=== PATIENT | male | born 1985 | race Hispanic/Latino ===

== ENCOUNTER 2017-01-03 11:12 | Emergency (ER) | payer OTHER ==
[~2017-01-03] VITALS: Ht 167.6 cm; Wt 63.6 kg
[2017-01-03 11:13] VITALS: BP 104/63; PULSE 62; RESP 18; O2SAT 99
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
--- NOTE | 2017-01-03 13:44 | DRSVH ---
PROCEDURE: X-RAY RIGHT WRIST COMPLETE, MINIMUM THREE VIEWS ([id number]) INDICATIONS: fall on outstretched hand 10 days ago, continued pain. TECHNIQUE: 4 views of the wrist were acquired. COMPARISON: None. FINDINGS: Bones: No fractures or dislocations. No suspicious bony lesions. Scaphoid view: Scaphoid is intact. Soft tissues: No suspicious soft tissue calcifications. IMPRESSION: No fracture. No osseous lesion. If symptoms and/or clinical suspicion for pathology pers ists, further assessment with repeat radiographs or advanced imaging (e.g. CT, MRI or bone scan) may be helpful for further assessment. Dictated by: Keily Mcintyre MD, PhD on 01/03/2017 at 13:41 Approved by: Keily Mcintyre MD, PhD on 01/03/2017 at 13:42
[2017-01-03 14:49] VITALS: BP 119/68; PULSE 72; RESP 17; O2SAT 98
== END 2017-01-03 14:49 | disposition home or self-care (01) ==
LOC: SED 11:12
DX: G56.01 Carpal tunnel syndrome, right upper limb (principal); V28.0XXA Motorcycle driver injured in noncollision transport accident in nontraffic accident, initial encounter; Y93.9 Activity, unspecified; Y92.9 Unspecified place or not applicable; Y99.8 Other external cause status; F17.200 Nicotine dependence, unspecified, uncomplicated